=== PATIENT | female | born 1955 | race Hispanic/Latino ===

== ENCOUNTER 2021-09-11 11:03 | Outpatient (CLI) | payer OTHER ==
--- NOTE | 2021-09-11 14:22 | XRay Report ---
Bilateral knee radiographs, single frontal view of each knee provided. HISTORY: Bilateral knee pain COMPARISON: None FINDINGS: No acute fracture. Joint spaces are preserved on weightbearing. No significant arthritis. N o focal soft tissue abnormality. IMPRESSION: No acute abnormality of either knee. Signer Name: Bobby Raymundo MD Signed: 09/11/2021 2:18 PM Workstation Name: [id number]
--- NOTE | 2021-09-11 14:23 | XRay Report ---
Pelvis, 2 views HISTORY: Bilateral hip pain COMPARISON: None FINDINGS: No acute fracture. Joint spaces are preserved. Small marginal osteophytes both hips suggest s early osteoarthritis. SI joints and pubic symphysis are intact. No focal soft tissue abnormality. IMPRESSION: No acute findings. Mild bilateral hip osteoarthritis. Signer Name: Bobby Raymundo MD Signed: 09/11/2021 2:19 PM Workstation Name: [id number]
== END 2021-09-11 11:04 | disposition home or self-care (01) ==
LOC: XRAY 11:03
PROVIDERS: ATTEND Internal Medicine
DX: Z02.71 Encounter for disability determination (principal); M25.752 Osteophyte, left hip; M25.751 Osteophyte, right hip
CPT/HCPCS: 73521; 73565